=== PATIENT | female | born 1965 ===

== ENCOUNTER 2023-11-25 06:00 | Outpatient (RCR) | payer BC, SELFPAY | END 2023-12-19 23:59 | disposition home or self-care (01) | LOC: GPT 06:00 | PROVIDERS: Visit Provider Orthopaedic Surgery Sports Medicine | DX: S43.6 Sprain of sternoclavicular joint (principal); X58.XXXD Exposure to other specified factors, subsequent encounter | CPT/HCPCS: 97110; 97112; 97140; 97161 ==

== ENCOUNTER 2023-12-20 06:00 | Outpatient (RCR) | payer BC, SELFPAY | END 2024-01-19 23:59 | disposition home or self-care (01) | LOC: GPT 06:00 | PROVIDERS: Visit Provider Orthopaedic Surgery Sports Medicine | DX: S43.6 Sprain of sternoclavicular joint (principal); X58.XXXD Exposure to other specified factors, subsequent encounter | CPT/HCPCS: 97110; 97112; 97164 ==

== ENCOUNTER 2024-01-20 06:00 | Outpatient (RCR) | payer BC, SELFPAY | END 2024-02-19 23:59 | disposition home or self-care (01) | LOC: GPT 06:00 | PROVIDERS: Visit Provider Orthopaedic Surgery Sports Medicine | DX: S43.6 Sprain of sternoclavicular joint (principal); X58.XXXD Exposure to other specified factors, subsequent encounter | CPT/HCPCS: 97110 ==